=== PATIENT | male | born 1985 | race Caucasian/White ===

== ENCOUNTER 2019-12-14 12:30 | Day surgery (SDC) | payer OTHER ==
[2019-12-14 13:10] LABS: BLOOD UREA NITROGEN,BUN 20 mg/dL (7.0-18.0); CARBON DIOXIDE,CO2 24.7 mmol/L (21.0-32.0); CHLORIDE,CL 100 mmol/L (98-107); GLUCOSE RANDOM 157 mg/dL (74-106); LIPASE 73 U/L (73-393); POTASSIUM,K 3.7 mmol/L (3.5-5.1); SODIUM,NA 137 mmol/L (136-148)
[2019-12-14] MEDS ORDERED: Iopamidol 755 MG/ML 500 ML Multipack Bottle IVPUSH STA (13:53)
--- NOTE | 2019-12-14 14:12 | CT ---
CT abdomen and pelvis Technique: Multiple axial sections were obtained from slightly below the top of the liver inferiorly through the pubic symphysis. Intravenous contrast was utilized. No oral contrast has been given. Findings: Visualized lung bases show nothing acute. Liver shows 2 small low-density findings within the posterior right lobe measuring 6 mm and 4.6 mm. These are too small to characterize by Hounsfield unit measurements but most likely represent small cysts. Gallbladder contains no calcified gallstones. Spleen appears within normal limits. Adrenal glands show no nodule. Kidneys show symmetric contrast enhancement without hydronephrosis or mass. Pancreas appears within normal limits. Aorta shows no aneurysm. No retroperitoneal adenopathy is seen. Dilated appendix is seen containing several appendicoliths. Inflammatory change is seen around the appendix. Findings are compatible with appendicitis. No pelvic mass or adenopathy is seen. No free fluid is appreciated. Bone window settings were reviewed which showed no acute osseous finding. Mild degenerative change is noted within the spine. Impression: 1. Findings as noted above compatible with appendicitis. 2. Other findings believe incidental above. Diagnostic code #5 Study was dictated in MDT
[2019-12-14] MEDS ORDERED: cefOXitin 2 GM in Sodium Chloride 0.9% 100 ML IV ONE (14:24)
[2019-12-14] MEDS ORDERED: Sodium Chloride 0.9% 1,000 ML IV ONE (14:24)
--- NOTE | 2019-12-14 14:26 | EDM.PDOC ---
ED [facility] GENERAL MEDICAL PROBLEM - General Chief Complaint: Abdominal Pain Stated Complaint: ABDOMINAL PAIN Time Seen by Provider: 12/14/19 12:36 - History of Present Illness INITIAL COMMENTS - FREE TEXT/NARRATIVE: HPI 34-year-old male with no known pertinent past medical history presents for evaluation of ~18 hours of progressive right lower quadrant pain now accompanied by anorexia. Patient noted chills early in the symptom course, however this is now resolved, no vomiting, diarrhea, no further symptoms. No prior abdominal surgeries. Currently declined pain medication. M/S/F/SocHx notable for: please see HPI; remainder reviewed with patient and in chart. ROS: Negative constitutional, eye, cardiovascular, pulmonary, GI, , MSK, skin , neurologic, psychiatric, endocrine unless noted in the HPI. Exam HR 130, RR 18, BP 159/107, T 36.8C, SaO2 95% on room air. Gen: Pleasant, non-toxic appearing, resting comfortably. HEENT: NC, AT, PEERL, EOMI. Resp: Clear to auscultation bilaterally, normal work of breathing, no accessory muscle usage. Card: Regular rate and rhythm with no murmurs, rubs, or gallops, extremities warm and well perfused. GI: right lower quadrant tenderness palpation of McBurneys point, mild rebound tenderness, remainder of abdomen nontender to palpation, negative Goodwin's sign , non-distended, no guarding. : No suprapubic tenderness to palpation. MSK: No visible deformities, strength and tone without visually appreciable deficit. Skin: Normal color with no visible lesions. Neuro: alert and oriented 3, no facial asymmetry, vision and hearing WNL. Psych: Mood and affect appropriate. Labs / Imaging: WBC 21.68, HB 15.5, sodium 137, potassium 3.7, AST 19, ALT 36, ALP 83, total bilirubin 1.1, lipase 73. UA - pending. CT: Dilated appendix is seen containing several appendicoliths. Inflammatory change is seen around the appendix. Findings are compatible with appendicitis. MDM Previous chart, nursing note, labs, imaging, and vitals reviewed. A: 34-year-old male with no known pertinent past medical history presents for evaluation of ~18 hours of progressive right lower quadrant pain now accompanied by anorexia. DDx: appendicitis, mesenteric adenitis, epiploic appendagitis, constipation, diverticulitis, biliary disease, ureterolithiasis. Evaluation: patient with right lower quadrant tenderness, leukocytosis, and acute appendicitis (uncomplicated) on CT. No evidence of further abnormalities on above evaluation. 1 L NS and 2 g cefoxitin given in ED. Disposition: patient admitted to Dr. Alvarado for operative intervention. Impression: acute appendicitis. Right Abdomen Pain Score (Numeric/FACES): 6 - Related Data Allergies Allergy/AdvReac Type Severity Reaction Status Date / Time No Known Allergies Allergy Verified 12/14/19 12:37 Home Meds: Home Meds Lisinopril [Zestril] 10 mg PO DAILY 12/14/19 [History] Past Medical History Cardiovascular History: Reports: Hypertension - Infectious Disease History Infectious Disease History: Reports: Chicken Pox - Past Surgical History Other Musculoskeletal Surgeries/Procedures:: Back Surgery Social & Family History - Tobacco Use Smoking Status *Q: Never Smoker - Caffeine Use Caffeine Use: Reports: Coffee - Recreational Drug Use Recreational Drug Use: No ED ROS GENERAL - Review of Systems Review Of Systems: See Below ED EXAM, GENERAL - Physical Exam Exam: See Below Course - Vital Signs Last Recorded V/S: Last Vital Signs Temp 37.5 C 12/14/19 13:55 Pulse 102 H 12/14/19 13:55 Resp 16 12/14/19 13:55 BP 158/90 H 12/14/19 13:55 Pulse Ox 96 12/14/19 13:55 - Orders/Labs/Meds Orders: Active Orders 24 hr Category Date Time Status Patient Status [ADT] Stat ADT 12/14/19 14:28 Ordered Sodium Chloride 0.9% [Normal Saline] 1,000 ml Med 12/14/19 14:24 Active IV .Bolus cefOXitin [Mefoxin in Dextrose,Iso-Osm 2 GM/50 ML] 2 gm Med 12/14/19 14:29 Ordered Premix Bag 1 bag IV ONETIME cefOXitin [Mefoxin] 2 gm Med 12/14/19 14:24 Active Sodium Chloride 0.9% [Normal Saline] 100 ml IV ONETIME Medication Orders Sodium Chloride (Normal Saline) 1,000 mls @ 1,000 mls/hr IV .Bolus ONE Stop: 12/14/19 15:23 Cefoxitin Sodium 2 gm/ Sodium (Chloride) 100 mls @ 200 mls/hr IV ONETIME ONE Stop: 12/14/19 14:53 Labs: Laboratory Tests 12/14/19 12/14/19 12/14/19 Range/Units 12:43 12:43 14:00 WBC 21.68 H (4.0-11.0) K/uL RBC 5.49 (4.50-5.90) M/uL Hgb 15.5 (13.0-17.0) g/dL Hct 45.5 (38.0-50.0) % MCV 82.9 (80.0-98.0) fL MCH 28.2 (27.0-32.0) pg MCHC 34.1 (31.0-37.0) g/dL RDW Std Deviation 37.9 (28.0-62.0) fl RDW Coeff of Zainab 13 (11.0-15.0) % Plt Count 267 (150-400) K/uL MPV 11.50 (7.40-12.00) fL Neut % (Auto) 84.3 H (48.0-80.0) % Lymph % (Auto) 6.8 L (16.0-40.0) % [place] % (Auto) 8.8 (0.0-15.0) % Eos % (Auto) 0.0 (0.0-7.0) % Baso % (Auto) 0.1 (0.0-1.5) % Neut # (Auto) 18.3 H (1.4-5.7) K/uL Lymph # (Auto) 1.5 (0.6-2.4) K/uL [place] # (Auto) 1.9 H (0.0-0.8) K/uL Eos # (Auto) 0.0 (0.0-0.7) K/uL Baso # (Auto) 0.0 (0.0-0.1) K/uL Nucleated RBC % 0.0 /100WBC Nucleated RBCs # 0 K/uL Sodium 137 (136-148) mmol/L Potassium 3.7 (3.5-5.1) mmol/L Chloride 100 (98-107) mmol/L Carbon Dioxide 24.7 (21.0-32.0) mmol/L BUN 20 H (7.0-18.0) mg/dL Creatinine 1.1 (0.8-1.3) mg/dL Est Cr Clr Drug Dosing 102.88 mL/min Estimated GFR (MDRD) > 60.0 ml/min Glucose 157 H (74-106) mg/dL Calcium 8.9 (8.5-10.1) mg/dL Total Bilirubin 1.1 H (0.2-1.0) mg/dL AST 19 (15-37) IU/L ALT 36 (14-63) IU/L Alkaline Phosphatase 83 (46-116) U/L Total Protein 7.9 (6.4-8.2) g/dL Albumin 4.0 (3.4-5.0) g/dL Globulin 3.9 (2.6-4.0) g/dL Albumin/Globulin Ratio 1.0 (0.9-1.6) Lipase 73 (73-393) U/L Urine Color YELLOW Urine Appearance CLEAR Urine pH 6.5 (5.0-8.0) Ur Specific [place] 1.010 (1.001-1.035) Urine Protein NEGATIVE (NEGATIVE) mg/dL Urine Glucose (UA) NEGATIVE (NEGATIVE) mg/dL Urine Ketones 15 H (NEGATIVE) mg/dL Urine Occult Blood NEGATIVE (NEGATIVE) Urine Nitrite NEGATIVE (NEGATIVE) Urine Bilirubin NEGATIVE (NEGATIVE) Urine Urobilinogen 1.0 (<2.0) EU/dL Ur Leukocyte Esterase NEGATIVE (NEGATIVE) Meds: Medications Generic Name Dose Route Start Last Admin Trade Name Freq PRN Reason Stop Dose Admin Sodium Chloride 1,000 mls @ 1,000 mls/hr 12/14/19 14:24 Normal Saline IV 12/14/19 15:23 .Bolus ONE Cefoxitin Sodium 2 gm/ Sodium 100 mls @ 200 mls/hr 12/14/19 14:24 Chloride IV 12/14/19 14:53 ONETIME ONE Discontinued Medications Generic Name Dose Route Start Last Admin Trade Name Freq PRN Reason Stop Dose Admin Iopamidol 100 ml 12/14/19 13:53 12/14/19 13:55 Isovue Multipack-370 (76%) IVPUSH 12/14/19 13:54 100 ml ONETIME STA Administration Departure - Departure Time of Disposition: 14:26 Disposition: Admitted As Inpatient 65 Clinical Impression: Appendicitis - Discharge Information Referrals: PCP,Unobtain [Primary Care Provider] - Forms: ED Department Discharge Sepsis Event Note - Evaluation Sepsis Screening Result: No Definite Risk - Focused Exam Vital Signs: Vital Signs Temp Pulse Resp BP Pulse Ox 12/14/19 13:55 37.5 C 102 H 16 158/90 H 96 12/14/19 12:34 36.8 C 130 H 18 159/107 H 95 Date Exam was Performed: 12/14/19 Time Exam was Performed: 14:30 - My Orders Last 24 Hours: My Active Orders 12/14/19 14:24 Sodium Chloride 0.9% [Normal Saline] 1,000 ml IV .Bolus cefOXitin [Mefoxin] 2 gm Sodium Chloride 0.9% [Normal Saline] 100 ml IV ONETIME 12/14/19 14:28 Patient Status [ADT] Stat 12/14/19 14:29 cefOXitin [Mefoxin in Dextrose,Iso-Osm 2 GM/50 ML] 2 gm Premix Bag 1 bag IV ONETIME - Assessment/Plan Last 24 Hours: My Active Orders 12/14/19 14:24 Sodium Chloride 0.9% [Normal Saline] 1,000 ml IV .Bolus cefOXitin [Mefoxin] 2 gm Sodium Chloride 0.9% [Normal Saline] 100 ml IV ONETIME 12/14/19 14:28 Patient Status [ADT] Stat 12/14/19 14:29 cefOXitin [Mefoxin in Dextrose,Iso-Osm 2 GM/50 ML] 2 gm Premix Bag 1 bag IV ONETIME
[2019-12-14] MEDS ORDERED: cefOXitin 2 GM in Premix Bag 1 BAG IV ONE (14:29)
[2019-12-14] MEDS ORDERED: Bupivacaine 0.25%/EPINEPHrine 1:200,000 10 ML SDV ONE ×2 (15:02→16:15)
--- NOTE | 2019-12-14 15:20 | PCM.SN ---
- Free Text/Narrative Note: pt seen, chart reviewed; h/p dictated; acute appendicitis > to surgery, lap vs open, rb dw pt re bleeding/infection/drain placement/damage to nearby organs/po course; pt concur and proceed; ivf/shaving/mefoxin 2g iv > to surgery;
[2019-12-14] MEDS ORDERED: Succinylcholine/Sod PF 100 MG/5 ML SYRINGE IV ONE (15:23)
[2019-12-14] MEDS ORDERED: Ondansetron 4 MG/2 ML SDV ONE (15:23)
[2019-12-14] MEDS ORDERED: Lidocaine 2% 5 ML SDV ONE (15:23)
[2019-12-14] MEDS ORDERED: Glycopyrrolate 0.2 MG/ML SDV ONE (15:23)
[2019-12-14] MEDS ORDERED: Rocuronium 100 MG/10 ML Syringe ONE (15:23)
[2019-12-14] MEDS ORDERED: Ketorolac 30 MG/ML SDV ONE (15:23)
[2019-12-14] MEDS ORDERED: fentaNYL 250 MCG/5 ML SDV ONE (15:25)
[2019-12-14] MEDS ORDERED: Albuterol 6.7 GM Inhaler INH ONE (15:25)
[2019-12-14] MEDS ORDERED: Midazolam 1 MG/ML 2 ML SDV ONE (15:25)
[2019-12-14] MEDS ORDERED: Propofol 200 MG/20 ML SDV ONE (15:25)
[2019-12-14] MEDS ORDERED: Sugammadex Sodium 200 MG/2 ML VIAL ONE (16:01)
[2019-12-14] MEDS ORDERED: Acetaminophen 1,000 MG in Premix Bag 1 BAG IV PRN (16:17)
[2019-12-14] MEDS ORDERED: fentaNYL 100 MCG/2 ML SDV IVPUSH PRN (16:17)
--- NOTE | 2019-12-14 16:17 | PCM.PREANE ---
Preanesthetic Assessment - Anesthesia/Transfusion/Family Hx Family History of Anesthesia Reaction: No Transfusion History: Prior Transfusion Reaction - Review of Systems Gastrointestinal: Abdominal Pain - Physical Assessment NPO Status Date: 12/14/19 NPO Status Time: 10:00 Vital Signs: Last Vital Signs Temp 37.5 C 12/14/19 13:55 Pulse 102 H 12/14/19 13:55 Resp 16 12/14/19 13:55 BP 158/90 H 12/14/19 13:55 Pulse Ox 96 12/14/19 13:55 Height: 1.83 m Weight: 99.79 kg ASA Class: 1E - Lab Values: Laboratory Last Values WBC 21.68 K/uL (4.0-11.0) H 12/14/19 12:43 RBC 5.49 M/uL (4.50-5.90) 12/14/19 12:43 Hgb 15.5 g/dL (13.0-17.0) 12/14/19 12:43 Hct 45.5 % (38.0-50.0) 12/14/19 12:43 MCV 82.9 fL (80.0-98.0) 12/14/19 12:43 MCH 28.2 pg (27.0-32.0) 12/14/19 12:43 MCHC 34.1 g/dL (31.0-37.0) 12/14/19 12:43 RDW Std Deviation 37.9 fl (28.0-62.0) 12/14/19 12:43 RDW Coeff of Zainab 13 % (11.0-15.0) 12/14/19 12:43 Plt Count 267 K/uL (150-400) 12/14/19 12:43 MPV 11.50 fL (7.40-12.00) 12/14/19 12:43 Neut % (Auto) 84.3 % (48.0-80.0) H 12/14/19 12:43 Lymph % (Auto) 6.8 % (16.0-40.0) L 12/14/19 12:43 [place] % (Auto) 8.8 % (0.0-15.0) 12/14/19 12:43 Eos % (Auto) 0.0 % (0.0-7.0) 12/14/19 12:43 Baso % (Auto) 0.1 % (0.0-1.5) 12/14/19 12:43 Neut # (Auto) 18.3 K/uL (1.4-5.7) H 12/14/19 12:43 Lymph # (Auto) 1.5 K/uL (0.6-2.4) 12/14/19 12:43 [place] # (Auto) 1.9 K/uL (0.0-0.8) H 12/14/19 12:43 Eos # (Auto) 0.0 K/uL (0.0-0.7) 12/14/19 12:43 Baso # (Auto) 0.0 K/uL (0.0-0.1) 12/14/19 12:43 Nucleated RBC % 0.0 /100WBC 12/14/19 12:43 Nucleated RBCs # 0 K/uL 12/14/19 12:43 Sodium 137 mmol/L (136-148) 12/14/19 12:43 Potassium 3.7 mmol/L (3.5-5.1) 12/14/19 12:43 Chloride 100 mmol/L (98-107) 12/14/19 12:43 Carbon Dioxide 24.7 mmol/L (21.0-32.0) 12/14/19 12:43 BUN 20 mg/dL (7.0-18.0) H 12/14/19 12:43 Creatinine 1.1 mg/dL (0.8-1.3) 12/14/19 12:43 Est Cr Clr Drug Dosing 102.88 mL/min 12/14/19 12:43 Estimated GFR (MDRD) > 60.0 ml/min 12/14/19 12:43 Glucose 157 mg/dL (74-106) H 12/14/19 12:43 Calcium 8.9 mg/dL (8.5-10.1) 12/14/19 12:43 Total Bilirubin 1.1 mg/dL (0.2-1.0) H 12/14/19 12:43 AST 19 IU/L (15-37) 12/14/19 12:43 ALT 36 IU/L (14-63) 12/14/19 12:43 Alkaline Phosphatase 83 U/L (46-116) 12/14/19 12:43 Total Protein 7.9 g/dL (6.4-8.2) 12/14/19 12:43 Albumin 4.0 g/dL (3.4-5.0) 12/14/19 12:43 Globulin 3.9 g/dL (2.6-4.0) 12/14/19 12:43 Albumin/Globulin Ratio 1.0 (0.9-1.6) 12/14/19 12:43 Lipase 73 U/L (73-393) 12/14/19 12:43 Urine Color YELLOW 12/14/19 14:00 Urine Appearance CLEAR 12/14/19 14:00 Urine pH 6.5 (5.0-8.0) 12/14/19 14:00 Ur Specific [place] 1.010 (1.001-1.035) 12/14/19 14:00 Urine Protein NEGATIVE mg/dL (NEGATIVE) 12/14/19 14:00 Urine Glucose (UA) NEGATIVE mg/dL (NEGATIVE) 12/14/19 14:00 Urine Ketones 15 mg/dL (NEGATIVE) H 12/14/19 14:00 Urine Occult Blood NEGATIVE (NEGATIVE) 12/14/19 14:00 Urine Nitrite NEGATIVE (NEGATIVE) 12/14/19 14:00 Urine Bilirubin NEGATIVE (NEGATIVE) 12/14/19 14:00 Urine Urobilinogen 1.0 EU/dL (<2.0) 12/14/19 14:00 Ur Leukocyte Esterase NEGATIVE (NEGATIVE) 12/14/19 14:00 - Allergies Allergies/Adverse Reactions: Allergies Allergy/AdvReac Type Severity Reaction Status Date / Time No Known Allergies Allergy Verified 12/14/19 12:37 - Acknowledgements Anesthesia Type Planned: General Anesthesia Pt an Appropriate Candidate for the Planned Anesthesia: Yes Alternatives and Risks of Anesthesia Discussed w Pt/Guardian: Yes Pt/Guardian Understands and Agrees with Anesthesia Plan: Yes PreAnesthesia Questionnaire Cardiovascular History: Reports: Hypertension - Infectious Disease History Infectious Disease History: Reports: Chicken Pox - Past Surgical History Other Musculoskeletal Surgeries/Procedures:: Back Surgery - SUBSTANCE USE Smoking Status *Q: Never Smoker Recreational Drug Use History: No - HOME MEDS Home Medications: Home Meds Lisinopril [Zestril] 10 mg PO DAILY 12/14/19 [History] - CURRENT (IN HOUSE) MEDS Current Meds: Current Medications Discontinued Medications Albuterol (Proventil Hfa) Confirm Administered Dose 6.7 gm INH .STK-MED ONE Stop: 12/14/19 15:26 Bupivacaine HCl/Epinephrine Bitart (Marcaine 0.25%/Epinephrine 1:200,000) Confirm Administered Dose 10 ml .ROUTE .STK-MED ONE Stop: 12/14/19 15:03 Fentanyl (Sublimaze) Confirm Administered Dose 250 mcg .ROUTE .STK-MED ONE Stop: 12/14/19 15:26 Glycopyrrolate (Robinul) Confirm Administered Dose 0.2 mg .ROUTE .STK-MED ONE Stop: 12/14/19 15:24 Sodium Chloride (Normal Saline) 1,000 mls @ 1,000 mls/hr IV .Bolus ONE Stop: 12/14/19 15:23 Last Infusion: 12/14/19 15:30 Dose: 150 mls/hr Cefoxitin Sodium 2 gm/ Premix 50 mls @ 100 mls/hr IV ONETIME ONE Stop: 12/14/19 14:58 Last Admin: 12/14/19 14:36 Dose: 100 mls/hr Iopamidol (Isovue Multipack-370 (76%)) 100 ml IVPUSH ONETIME STA Stop: 12/14/19 13:54 Last Admin: 12/14/19 13:55 Dose: 100 ml Ketorolac Tromethamine (Toradol) Confirm Administered Dose 30 mg .ROUTE .STK- MED ONE Stop: 12/14/19 15:24 Lidocaine (Xylocaine-Mpf 2%) Confirm Administered Dose 5 ml .ROUTE .STK-MED ONE Stop: 12/14/19 15:24 Midazolam HCl (Versed 1 Mg/Ml) Confirm Administered Dose 2 mg .ROUTE .STK-MED ONE Stop: 12/14/19 15:26 Ondansetron HCl (Zofran) Confirm Administered Dose 4 mg .ROUTE .STK-MED ONE Stop: 12/14/19 15:24 Propofol (Diprivan 20 Ml) Confirm Administered Dose 200 mg .ROUTE .STK-MED ONE Stop: 12/14/19 15:26 Rocuronium [place] (Zemuron) Confirm Administered Dose 100 mg .ROUTE .STK-MED ONE Stop: 12/14/19 15:24 Sugammadex Sodium ([place]) Confirm Administered Dose 200 mg .ROUTE .STK-MED ONE Stop: 12/14/19 16:02
--- NOTE | 2019-12-14 16:26 | CONS ---
DATE OF CONSULTATION: 12/14/2019 DATE OF : 1985 PRIMARY CARE PHYSICIAN: Bernardoobpete PCP This consult from Dr. Calvin Pierre in the emergency room. CONSULTING QUESTION: Acute appendicitis. HISTORY OF PRESENT ILLNESS: The patient is a 34 years old gentleman, normal built, not obese, complaining of 36 hour history of a progressive onset of periumbilical pain, subsequently migrated to the right lower quadrant. Denied prior episode. Denied fever, chill, or diarrhea, and pain was rated as almost 8 and pain progressive getting into the emergency room and getting to the pain 10 on the pain scale. PAST MEDICAL HISTORY: Significant for no diabetic, PR, CVA, and hypertension. PAST SURGICAL HISTORY: Had some kind of herniated disk at the back, back surgery. ALLERGY: Please refer to nursing for details. MEDICATIONS: Please refer to nursing for details. SOCIAL HISTORY: No tobacco or alcohol. FAMILY HISTORY: Noncontributory. There is no malignant hyperthermia in family history. PHYSICAL EXAMINATION: GENERAL: On examination, a very pleasant gentleman. Even in a lot of pain, smiled to doctor. Very polite and very pleasant. HEENT: Normocephalic and atraumatic. Sclerae anicteric. LUNGS: Clear to auscultation. HEART: Regular rate and rhythm. ABDOMEN: Soft, nondistended. No pulsating tender midline abdominal structure. No surgical scar. There is a small umbilical hernia, nontender. Exquisite tenderness on the McBurney point, almost jumped off the table. LABORATORY DATA: Upon consultation, white count is 21.68 and H and H are 15.5 and 45.5, platelet is 267. Sodium is 137, potassium 3.7, BUN is 20, creatinine is 1.1, the patient is very dry. Total bilirubin is small elevated at 1.1, and glucose is 157. Lipase is normal at 73. Urine, no signs or symptoms of UTI. CAT scan reading, dilated appendix compatible with appendicitis with inflammatory changes and dilated appendix compatible with of appendicitis. IMPRESSION: Elevated white count at 22, clinical exam and CAT scan compatible with acute appendicitis. The patient was offered surgical intervention, laparoscopic versus open and the risks and benefits discussed with the patient. The patient concurred to proceed as planned. Benefit is to remove the appendix and take care of the situation and the risks involved with bleeding, infection, and damage to the nearby organs. The patient concurred to proceed as planned. The patient will get IV fluid, antibiotic and 2 g IV Mefoxin, surgical consent, ready for surgery. LOPEZ / NEENA /[id number]
[2019-12-14] MEDS ORDERED: fentaNYL 100 MCG/2 ML SDV ONE (16:33)
--- NOTE | 2019-12-14 17:09 | PCM.OPNOTE ---
- General Post-Op/Procedure Note Findings: appendix was large, severely scarred down with abd wall; gross perf is not observed, but appendix looked appendicitis suppurativa; would benefit from 24 hrs iv abx; [id number] Pre Op Diagnosis: appendicitis Post-Op Diagnosis: Same Anesthesia Technique: General ET Tube Primary Surgeon: Kirk Alvarado Pathology: sent Complications: None Condition: Good
[2019-12-14] MEDS ORDERED: Morphine 4 MG/ML Syringe IVPUSH PRN (17:13)
[2019-12-14] MEDS ORDERED: Ondansetron 4 MG/2 ML SDV IVPUSH PRN (17:14)
[2019-12-14] MEDS ORDERED: cefOXitin 1 GM in Premix Bag 1 BAG IV SCH (17:15)
--- NOTE | 2019-12-14 17:17 | PCM.SN ---
- Free Text/Narrative Note: pt will finished iv mefoxin q6 X 23 hr, then home on pain meds and po abx
--- NOTE | 2019-12-14 17:43 | PCM.POSTAN ---
POST ANESTHESIA ASSESSMENT - MENTAL STATUS Mental Status: Alert - VITAL SIGNS Vital Signs: Last Vital Signs Temp 37 C 12/14/19 17:02 Pulse 108 H 12/14/19 17:33 Resp 13 12/14/19 17:33 BP 133/84 12/14/19 17:33 Pulse Ox 99 12/14/19 17:33 - RESPIRATORY Respiratory Status: Respiratory Rate WNL - CARDIOVASCULAR CV Status: Pulse Rate WNL - GASTROINTESTINAL GI Status: No Symptoms - POST OP HYDRATION Hydration Status: Adequate & Stable
--- NOTE | 2019-12-14 17:56 | OR ---
SURGEON: Kirk Alvarado MD DATE OF PROCEDURE: 12/14/2019 PREOPERATIVE DIAGNOSIS: Acute appendicitis. POSTOPERATIVE DIAGNOSIS: Acute appendicitis. PROCEDURE PERFORMED: Laparoscopic appendectomy. PRIMARY SURGEON: Kirk Alvarado MD COMPLICATIONS: None. FINDINGS: The appendix is very big, the whole length of the appendix is almost like 12 cm and is severely inflamed and hardened like a rock from the distal tip to the proximal 2/3 of the appendix and the proximal 1/3 of the appendix looks less affected. Although gross perforation is not observed, the patient would benefit from 24 hours of IV antibiotic because the appendix is appendicitis suppurativa. DESCRIPTION OF PROCEDURE: The patient was taken to the operating room and placed in the supine position. Following induction of general endotracheal anesthesia, the patient's abdomen was prepped and draped in the sterile fashion. A time-out has been called. The patient was identified. The procedure was identified. The antibiotics were identified. The procedure then proceeded. The abdomen was prepped and draped in a standard fashion. After assessment of appropriate landmarks, a 12 millimeter trocar was inserted supraumbilically using Optiview and pneumoperitoneum was then achieved. This was followed with placement of 5 millimeter port in the right upper quadrant and another 5 millimeter port infraumbilically. The camera was inserted supraumbilical site and two laparoscopic Jhonathan retractors were then inserted through the other two sites. Following the cecum, the appendix was located. The appendix was then lifted up, and using a GI stapler the appendix was amputated at the base. And using the GI stapler, the mesoappendix was then amputated. The appendix was retrieved by an endoscopic bag and sent for pathologist. This was then followed by re-insertion of the camera to examine the staple line, and hemostasis. The trocars were then removed. The umbilical site was closed with 2-0 Vicryl deep stitch and 4 -0 Vicryl and Dermabond; the other 2 5 mm port sites were closed with 4-0 Vicryl and Dermabond. The patient was then awakened, extubated, and transferred to the recovery room in hemodynamically stable condition. Prior to closing, sponge count and instrument count was correct. Intraoperative findings as dictated above. At the end of the surgery, Surgicel was placed for hemostasis and the skin approximated by use of skin staple and followed by appropriate dressing. Prior to all this, sponge count and instrument count were correct. Dr. Alvarado was present throughout the whole procedure. As always, thank you for the kind referral. LOPEZ CHAUDHARY /[id number]
[2019-12-14] MEDS: Lactated Ringers 1,000 ML IV SCH (18:23)
[2019-12-14] MEDS: cefOXitin 1 GM in Premix Bag 1 BAG IV SCH (20:11)
[2019-12-15] MEDS: cefOXitin 1 GM in Premix Bag 1 BAG IV SCH ×3 (01:34→14:31)
[2019-12-15] MEDS: Lactated Ringers 1,000 ML IV SCH (02:55)
--- NOTE | 2019-12-15 07:07 | PCM48HPAN ---
Post Anesthesia Note - EVALUATION WITHIN 48HRS OF ANESTHETIC Vital Signs in Normal Range: Yes Patient Participated in Evaluation: Yes Respiratory Function Stable: Yes Airway Patent: Yes Cardiovascular Function Stable: Yes Hydration Status Stable: Yes Pain Control Satisfactory: Yes Nausea and Vomiting Control Satisfactory: Yes Mental Status Recovered: Yes Vital Signs: Last Vital Signs Temp 36.8 C 12/15/19 07:00 Pulse 88 12/15/19 07:00 Resp 17 12/15/19 07:00 BP 125/72 12/15/19 07:00 Pulse Ox 95 12/15/19 07:00
[2019-12-15] MEDS: Acetaminophen/oxyCODONE 325-5 MG Tab PO PRN ×3 (07:29→14:27)
== END 2019-12-15 16:00 | disposition home or self-care (01) ==
LOC: MW.ED 12:30 → MW.SDS 14:28 → MW.MS 17:28 → MW.SDS 12-15 16:00
PROVIDERS: ATTEND Surgery
DX: K35.80 Unspecified acute appendicitis (principal); I10 Essential (primary) hypertension; Z79.899 Other long term (current) drug therapy
CPT/HCPCS: 36415; 74177; 74177-26; 80053; 81003; 83690; 85025; 96374; 99284; 99285-25; A9270-GY; C1776; J0330; J0694; J1885; J2001; J2250; J2405; J2704; J3010; J3490; J7030; J7120; Q9967